=== PATIENT | male | born 1985 | race African-American/Black ===

== ENCOUNTER 2019-11-06 14:30 | Emergency (ER) | payer OTHER ==
[~2019-11-06] VITALS: Ht 157.5 cm; Wt 147.4 kg
[2019-11-06] MEDS ORDERED: HYDROMORPHONE 1 MG/1 ML DISP.SYRIN ONE (14:59)
[2019-11-06] MEDS ORDERED: HYDROMORPHONE INJ 2 MG/ML DISP.SYRIN IV ONE (15:00)
--- NOTE | 2019-11-06 15:00 | NUR ---
BIB [facility], C/O AMDOMINAL PAIN SINCE THIS MORNING. ON ROOM AIR, BREATHING EVENLY AND UNLABORED. CONNECTED TO THE MONITOR AND PULSE OX. KEPT COMFORTABLE, WILL CONTINUE TO MONITOR ACCORDINGLY.
[2019-11-06 15:01] LABS: BASOPHILS % (AUTO) 0.2 % (0.0-2.0); EOSINOPHILS % (AUTO) 1.1 % (0.0-6.0); HEMATOCRIT 39 % (39-51); HEMOGLOBIN 12.2 g/dL (13.5-17.5); LYMPHOCYTES # (AUTO) 1.3 /CMM (0.8-4.8); LYMPHOCYTES % (AUTO) 11.9 % (20.0-44.0); MEAN CORPUSCULAR HGB CONC 32 g/dl (31.0-36.0); MEAN CORPUSCULAR VOLUME 66 fL (80-96); MONOCYTES # (AUTO) 0.8 /CMM (0.1-1.30); MONOCYTES % (AUTO) 7.5 % (2.0-12.0); NEUTROPHILS # (AUTO) 8.4 /CMM (1.8-8.9); NEUTROPHILS % (AUTO) 79.3 % (43.0-81.0); PLATELET COUNT (AUTO) 235 /CMM (150-450); RED BLOOD CELL COUNT(AUTO) 5.83 MIL/uL (4.5-6.0); WHITE BLOOD COUNT (AUTO) 10.6 K/uL (4.3-11.0)
[2019-11-06 15:19] LABS: ALANINE AMINOTRANSFERASE 11 U/L (12-78); ALBUMIN 3.4 g/dL (3.4-5.0); ALKALINE PHOSPHATASE 69 U/L (46-116); ASPARTATE AMINOTRANSFERASE 15 U/L (15-37); BILIRUBIN,DIRECT 0.1 mg/dL (0.0-0.2); BILIRUBIN,TOTAL 0.3 mg/dL (0.2-1.0); CALCIUM, SERUM 8.9 mg/dL (8.5-10.1); CARBON DIOXIDE 34 mmol/L (21-32); CHLORIDE 98 mmol/L (98-107); CREATININE 1.1 mg/dL (0.6-1.3); GLUCOSE 109 mg/dL (74-106); LIPASE 77 U/L (73-393); SODIUM SERUM 141 mmol/L (136-145); TOTAL PROTEIN, SERUM 7.6 g/dL (6.4-8.2); UREA NITROGEN, BLOOD 23 mg/dL (7-18)
[2019-11-06 15:23] LABS: POTASSIUM 2.7 mmol/L (3.5-5.1)
[2019-11-06] MEDS ORDERED: POTASSIUM CHLORIDE 20 MEQ TAB.PRT.SR PO ONE ×2 (16:00→16:01)
[2019-11-06] MEDS ORDERED: KETOROLAC TROMETHAMINE INJ 30 MG/ML VIAL IV ONE (17:00)
[2019-11-06] MEDS ORDERED: KETOROLAC TROMETHAMINE INJ 30 MG/ML VIAL ONE (17:03)
[2019-11-06 17:42] VITALS: BP 120/61
--- NOTE | 2019-11-06 17:43 | NUR ---
Patient discharged to home in stable condition. Written and verbal after care instructions given. Patient verbalizes understanding of instruction.IV removed. Catheter intact and site benign. Pressure and 4x4 applied to site. No bleeding noted.
== END 2019-11-06 17:43 | disposition home or self-care (01) ==
LOC: ER 14:38
DX: K80.20 Calculus of gallbladder without cholecystitis without obstruction (principal); E87.6 Hypokalemia; R10.13 Epigastric pain; I50.9 Heart failure, unspecified
CPT/HCPCS: 36415; 74176; 80048; 80076; 83690; 84484; 85025; 93005; 96374; 96375; 99285; J1170; J1885

== ENCOUNTER 2019-11-19 15:40 | Emergency (ER) | payer OTHER ==
[~2019-11-19] VITALS: Ht 177.8 cm; Wt 145.1 kg
--- NOTE | 2019-11-19 15:45 | NUR ---
came in w c/o left knee pain x 2 days, hyperextended while walking, 7/10 ps, to er bed 9, hooked to monitor, ice pack applied to L knee. awaiting md huitron
--- NOTE | 2019-11-19 15:52 | NUR ---
JOSE Holman at bedside
[2019-11-19] MEDS ORDERED: TRAMADOL HCL 50 MG TABLET PO ONE (16:00)
[2019-11-19] MEDS ORDERED: TRAMADOL HCL 50 MG TABLET ONE (16:21)
--- NOTE | 2019-11-19 16:48 | NUR ---
MICHAEL wrap applied by tech at L knee
[2019-11-19 16:49] VITALS: BP 112/71
== END 2019-11-19 16:49 | disposition home or self-care (01) ==
LOC: ER 15:40
DX: M25.562 Pain in left knee (principal); I50.9 Heart failure, unspecified; E66.9 Obesity, unspecified; Z68.42 Body mass index [BMI] 45.0-49.9, adult
CPT/HCPCS: 73564-TC